=== PATIENT | male | born 1955 | race Caucasian/White ===

== ENCOUNTER 2024-10-27 11:00 | Outpatient (RCR) | payer MEDICARE, BC, SELFPAY ==
[2024-05-27 15:00] LABS: Basophils Percent Auto 0.2 % (0.0-3.0); Hematocrit* 39.8 % (37.0-53.0); Hemoglobin* 12.9 gm/dL (13.5-17.5); Immature Granulocytes Pct Auto 0.2 %; Lymphocytes Percent Auto 16.2 % (20-44); Mean Corpuscular HGB Conc 32 gm/dL (32-36); Mean Corpuscular Hemoglobin 30 pg (26-34); Mean Corpuscular Volume 93 fL (80-100); Monocytes Percent Auto 10.3 % (0.0-11.0); Neutrophils Percent Auto 71.1 % (42.0-72.0); Platelet Count* 187 K/uL (140-440); RDW Coefficient of Variation % 12.8 % (11.5-15.5); Red Blood Count* 4.27 m/uL (4.30-5.90); White Blood Count* 4.45 K/uL (4.50-11.00)
[2024-05-27 15:02] LABS: Slide Review Reflex No
[2024-05-27 15:15] LABS: Albumin* 4.1 g/dL (3.3-5.0); Chloride* 108 mmol/L (96-114); Potassium* 4.2 mmol/L (3.6-5.1); Sodium* 137 mmol/L (135-149)
[2024-05-27 15:18] LABS: Alanine Aminotransferase* 24 U/L (4-50); Alkaline Phosphatase* 78 U/L (40-150); Anion Gap 3 mEq/L (7-15); Aspartate Amino Transferase* 24 U/L (12-35); Bilirubin Total* 0.5 mg/dL (0.1-1.5); Blood Urea Nitrogen* 29 mg/dL (7-30); Carbon Dioxide* 26 mmol/L (20-32); Estimated Glomerular Filt Rate 80 ml/min; Glucose* 107 mg/dL (60-115); Total Protein* 6.6 g/dL (6.0-8.3)
[2024-05-27 15:19] LABS: Calcium* 9.2 mg/dL (8.4-10.6)
[2024-05-27 15:48] LABS: PSA Diagnostic* 0.64 ng/mL (0.10-4.00)
[2024-05-30 03:55] LABS: Sex Hormone Binding Globulin 45 nmol/L (19-76); Testosterone, Adult Male <3 ng/dL (300-720); Testosterone, Free Calculation <1 pg/mL (47-244); Testosterone, Percentage Free <1.4 % (1.6-2.9)
[2024-05-30 04:21] LABS: Vitamin D, 1,25-Dihydroxy 34.3 pg/mL (19.9-79.3)
--- NOTE | 2024-06-23 16:29 | ONC.NURNOTE ---
Reviewed possible side effects and required monitoring while on Erleada Reviewed dosing and administration lenghtly discussion on managing the financial toxicity with no medicare part D coverage Rx and supporting documentation to be [facility]ed to [id number] patient was advised that it will be 1-2 weeks before medication is delivered options discussed for managing cost coverage of the Erleada -first if copay maurisio available for prostate cancer -if no maurisio - patient may be financially eligable for free drug through the [employer] -or he may be responsible for the first $2000 out of pocket max
--- NOTE | 2024-06-27 15:58 | ONC.NURNOTE ---
RX Geoffjudithada is pending processing at [id number] [address] Dr Kemp signed oncology consult to fax to [id number] patient has no part D and will need to be referred to [employer] once copay known as unaffordable reviewed income eligibility with patient Vicky Chao signed the providers portion of the enrollment form instructions given for Anup to complete his portion on line but not submit until the RX has been processed by [id number] through his insurance
--- NOTE | 2024-06-29 12:14 | ONC.NURNOTE ---
Addendum entered by Blanca Palma RN 06/30/24 09:30: application missing gender designation- corrected and refaxed to [facility] call to patient to remind to complete his application online- patient states he will try to complete today Original Note: Erleada monthly copay without Part D coverage is over $18,000/month Anup was instructed on the [employer] [facility] he will complete his portion via online portal Vicky HULL signed the provider statement for Dr Higgins who will not be back in the office for 8 days application was faxed to [phone]
--- NOTE | 2024-07-06 09:29 | ONC.NURNOTE ---
Shalonda to be provided by [facility] [employer] [facility] from 07/04/24 through 06/07/25 at no cost phone [phone] fax [phone]
[2024-07-07 09:53] LABS: Eosinophils Absolute Auto 0.13 K/uL (0.00-0.50); Eosinophils Percent Auto 2.7 % (0.0-7.0); Hematocrit* 39.4 % (37.0-53.0); Hemoglobin* 12.9 gm/dL (13.5-17.5); Immature Granulocytes Abs Auto 0.02 K/uL (0.00-0.30); Immature Granulocytes Pct Auto 0.4 %; Lymphocytes Absolute Auto 1.22 K/uL (0.90-2.90); Lymphocytes Percent Auto 25.8 % (20-44); Mean Corpuscular HGB Conc 33 gm/dL (32-36); Mean Corpuscular Hemoglobin 30 pg (26-34); Mean Corpuscular Volume 90 fL (80-100); Monocytes Percent Auto 12.3 % (0.0-11.0); Neutrophils Absolute Auto 2.78 K/uL (1.7-7.0); Neutrophils Percent Auto 58.8 % (42.0-72.0); Platelet Count* 170 K/uL (140-440); RDW Coefficient of Variation % 13.5 % (11.5-15.5); Red Blood Count* 4.38 m/uL (4.30-5.90); White Blood Count* 4.73 K/uL (4.50-11.00)
[2024-07-07 09:55] LABS: Slide Review Reflex No
[2024-07-07 10:06] LABS: Albumin* 4.1 g/dL (3.3-5.0); Chloride* 107 mmol/L (96-114); Sodium* 138 mmol/L (135-149)
[2024-07-07 10:09] LABS: Alanine Aminotransferase* 20 U/L (4-50); Alkaline Phosphatase* 71 U/L (40-150); Anion Gap 6 mEq/L (7-15); Aspartate Amino Transferase* 19 U/L (12-35); Bilirubin Total* 0.6 mg/dL (0.1-1.5); Blood Urea Nitrogen* 30 mg/dL (7-30); Carbon Dioxide* 25 mmol/L (20-32); Creatinine* 0.8 mg/dL (0.5-1.5); Est. Creatinine Clearance* 56.73; Estimated Glomerular Filt Rate 95 ml/min; Glucose* 97 mg/dL (60-115); Total Protein* 6.7 g/dL (6.0-8.3)
[2024-07-07 10:10] LABS: Calcium* 9.2 mg/dL (8.4-10.6)
--- NOTE | 2024-07-07 11:21 | URNOTE ---
Request received for authorization [facility] ([id number] Prior authorization is not required as services are based on medical necessity and follow Medicare guidelines.
--- NOTE | 2024-07-07 12:19 | ONC.NURNOTE ---
baseline labs drawn today for Erleada start results noted as stable and called to [facility] reviewed next lab due in 4 weeks- patient will also be receiving his leuprolide per orders from Dr Carlyn Collado requested that he receive injections at [facility] instead of [place]
--- NOTE | 2024-07-08 14:27 | ONC.NURNOTE ---
Received call from Kristina with [employer] ([employer]). Pt has been approved for financial assistance. He will receive drug through [facility]. Pt has been given their phone # to set up delivery. Kristina's phone: [phone] [facility]: P: F:
--- NOTE | 2024-07-12 13:56 | ONC.NURNOTE ---
tolerance check-in regarding new start of Erleada reports no noticable effects denies swelling, rash, fatigue arthralgias, diarrhea reviewed process for ordering next months supply
[2024-08-04 09:07] LABS: Basophils Absolute Auto 0.01 K/uL (0.00-0.30); Basophils Percent Auto 0.2 % (0.0-3.0); Eosinophils Absolute Auto 0.15 K/uL (0.00-0.50); Eosinophils Percent Auto 2.6 % (0.0-7.0); Hematocrit* 40.3 % (37.0-53.0); Hemoglobin* 12.9 gm/dL (13.5-17.5); Immature Granulocytes Abs Auto 0.01 K/uL (0.00-0.30); Immature Granulocytes Pct Auto 0.2 %; Lymphocytes Absolute Auto 1.44 K/uL (0.90-2.90); Lymphocytes Percent Auto 25.4 % (20-44); Mean Corpuscular HGB Conc 32 gm/dL (32-36); Mean Corpuscular Hemoglobin 29 pg (26-34); Mean Corpuscular Volume 92 fL (80-100); Monocytes Percent Auto 9.7 % (0.0-11.0); Neutrophils Absolute Auto 3.51 K/uL (1.7-7.0); Neutrophils Percent Auto 61.9 % (42.0-72.0); Platelet Count* 214 K/uL (140-440); RDW Coefficient of Variation % 14.1 % (11.5-15.5); Red Blood Count* 4.39 m/uL (4.30-5.90); White Blood Count* 5.67 K/uL (4.50-11.00)
[2024-08-04 09:08] LABS: Slide Review Reflex No
[2024-08-04 09:20] LABS: Albumin* 4.4 g/dL (3.3-5.0); Chloride* 104 mmol/L (96-114); Sodium* 138 mmol/L (135-149)
[2024-08-04 09:23] LABS: Alkaline Phosphatase* 80 U/L (40-150); Anion Gap 8 mEq/L (7-15); Aspartate Amino Transferase* 24 U/L (12-35); Bilirubin Total* 0.6 mg/dL (0.1-1.5); Blood Urea Nitrogen* 35 mg/dL (7-30); Carbon Dioxide* 26 mmol/L (20-32); Creatinine* 1.1 mg/dL (0.5-1.5); Est. Creatinine Clearance* 51.58; Estimated Glomerular Filt Rate 72 ml/min; Glucose* 96 mg/dL (60-115)
[2024-08-04 09:24] LABS: Alanine Aminotransferase* 25 U/L (4-50); Calcium* 9.5 mg/dL (8.4-10.6)
[2024-08-04 09:47] VITALS: BP 117/80; PULSE 65; RESP 16; TEMP 36.1; O2SAT 96
[2024-08-04 09:54] LABS: PSA Diagnostic* 0.22 ng/mL (0.10-4.00)
[2024-08-04] MEDS: LEUPROLIDE ACETATE (ELIGARD) 22.5 MG INJ SUBCUT (10:07)
--- NOTE | 2024-08-04 11:14 | ONC.NURNOTE ---
lab results noted PSA called to [facility] reviewed any noted side effects from apalutamide notes fatigue reports some minimal change in stool quality- firmer denies constipation suggested miralax if need to soften stools denies any other concern taking his medication daily reports no issues with medication delivery
[2024-09-01 11:49] LABS: Basophils Absolute Auto 0.01 K/uL (0.00-0.30); Basophils Percent Auto 0.2 % (0.0-3.0); Eosinophils Percent Auto 2.2 % (0.0-7.0); Hematocrit* 38.6 % (37.0-53.0); Hemoglobin* 12.5 gm/dL (13.5-17.5); Immature Granulocytes Abs Auto 0.04 K/uL (0.00-0.30); Immature Granulocytes Pct Auto 0.9 %; Lymphocytes Absolute Auto 1.21 K/uL (0.90-2.90); Lymphocytes Percent Auto 26.3 % (20-44); Mean Corpuscular HGB Conc 32 gm/dL (32-36); Mean Corpuscular Hemoglobin 30 pg (26-34); Mean Corpuscular Volume 91 fL (80-100); Monocytes Percent Auto 10.2 % (0.0-11.0); Neutrophils Absolute Auto 2.77 K/uL (1.7-7.0); Neutrophils Percent Auto 60.2 % (42.0-72.0); Platelet Count* 219 K/uL (140-440); Red Blood Count* 4.24 m/uL (4.30-5.90)
[2024-09-01 12:03] LABS: Slide Review Reflex No
[2024-09-01 12:04] LABS: Chloride* 107 mmol/L (96-114)
[2024-09-01 12:05] LABS: Potassium* 3.9 mmol/L (3.6-5.1); Sodium* 140 mmol/L (135-149)
[2024-09-01 12:07] LABS: Alanine Aminotransferase* 22 U/L (4-50); Anion Gap 6 mEq/L (7-15); Aspartate Amino Transferase* 25 U/L (12-35); Blood Urea Nitrogen* 27 mg/dL (7-30); Carbon Dioxide* 27 mmol/L (20-32); Creatinine* 0.9 mg/dL (0.5-1.5); Est. Creatinine Clearance* 56.73; Estimated Glomerular Filt Rate 91 ml/min
[2024-09-01 12:08] LABS: Alkaline Phosphatase* 67 U/L (40-150); Bilirubin Total* 0.5 mg/dL (0.1-1.5); Calcium* 9.4 mg/dL (8.4-10.6); Glucose* 104 mg/dL (60-115); Total Protein* 6.7 g/dL (6.0-8.3)
[2024-09-01 12:38] LABS: PSA Diagnostic* 0.14 ng/mL (0.10-4.00)
[2024-10-27 11:10] LABS: Basophils Percent Auto 0.2 % (0.0-3.0); Eosinophils Percent Auto 3.9 % (0.0-7.0); Hematocrit* 36.8 % (37.0-53.0); Hemoglobin* 11.9 gm/dL (13.5-17.5); Immature Granulocytes Pct Auto 0.5 %; Lymphocytes Percent Auto 25.8 % (20-44); Mean Corpuscular HGB Conc 32 gm/dL (32-36); Mean Corpuscular Hemoglobin 30 pg (26-34); Mean Corpuscular Volume 94 fL (80-100); Monocytes Percent Auto 12.2 % (0.0-11.0); Neutrophils Percent Auto 57.4 % (42.0-72.0); Platelet Count* 187 K/uL (140-440); RDW Coefficient of Variation % 13.9 % (11.5-15.5); Red Blood Count* 3.93 m/uL (4.30-5.90); White Blood Count* 4.11 K/uL (4.50-11.00)
[2024-10-27 11:11] LABS: Slide Review Reflex No
[2024-10-27 11:14] VITALS: BP 156/78; PULSE 58; RESP 16; TEMP 36.6; O2SAT 98
[2024-10-27 11:27] LABS: Albumin* 3.9 g/dL (3.3-5.0); Chloride* 106 mmol/L (96-114); Potassium* 3.7 mmol/L (3.6-5.1); Sodium* 139 mmol/L (135-149)
[2024-10-27 11:29] LABS: Blood Urea Nitrogen* 25 mg/dL (7-30); Creatinine* 0.9 mg/dL (0.5-1.5); Est. Creatinine Clearance* 56.73; Estimated Glomerular Filt Rate 91 ml/min
[2024-10-27 11:30] LABS: Alanine Aminotransferase* 15 U/L (4-50); Alkaline Phosphatase* 86 U/L (40-150); Anion Gap 4 mEq/L (7-15); Aspartate Amino Transferase* 23 U/L (12-35); Bilirubin Total* 0.4 mg/dL (0.1-1.5); Calcium* 8.8 mg/dL (8.4-10.6); Carbon Dioxide* 29 mmol/L (20-32); Glucose* 103 mg/dL (60-115); Total Protein* 6.4 g/dL (6.0-8.3)
[2024-10-27] MEDS: LEUPROLIDE ACETATE (ELIGARD) 22.5 MG INJ SUBCUT (11:51)
--- NOTE | 2024-10-27 13:18 | ONC.NURNOTE ---
message left on voice mail- results stable
== END 2024-11-23 23:59 | disposition home or self-care (01) ==
LOC: CCIC 11:00
PROVIDERS: Internal Medicine; Internal Medicine Hematology & Oncology; Visit Provider Physician Assistant
DX: C61 Malignant neoplasm of prostate (principal)
CPT/HCPCS: 36415; 80053; 82652; 84153; 84270; 84402; 84403; 85025; 96402; 99203; 99204; 99214; G0463; J9217

== ENCOUNTER 2025-04-14 10:00 | Outpatient (RCR) | payer MEDICARE, BC, SELFPAY ==
[2024-11-29 10:27] LABS: Hematocrit* 40.2 % (37.0-53.0); Hemoglobin* 13.1 gm/dL (13.5-17.5); Immature Granulocytes Pct Auto 0.2 %; Mean Corpuscular HGB Conc 33 gm/dL (32-36); Mean Corpuscular Hemoglobin 31 pg (26-34); Mean Corpuscular Volume 94 fL (80-100); RDW Coefficient of Variation % 13.3 % (11.5-15.5); Red Blood Count* 4.29 m/uL (4.30-5.90); White Blood Count* 4.18 K/uL (4.50-11.00)
[2024-11-29 10:41] LABS: Immature Granulocytes Abs Auto 0.00 K/uL (0.00-0.30); Lymphocytes Absolute Auto 1.10 K/uL (0.90-2.90); Slide Review Reflex No
[2024-11-29 10:45] LABS: Albumin* 4.2 g/dL (3.3-5.0); Chloride* 106 mmol/L (96-114); Potassium* 4.6 mmol/L (3.6-5.1); Sodium* 139 mmol/L (135-149)
[2024-11-29 10:47] LABS: Blood Urea Nitrogen* 26 mg/dL (7-30); Creatinine* 0.9 mg/dL (0.5-1.5); Estimated Glomerular Filt Rate 91 ml/min
[2024-11-29 10:48] LABS: Alanine Aminotransferase* 16 U/L (4-50); Alkaline Phosphatase* 80 U/L (40-150); Anion Gap 5 mEq/L (7-15); Aspartate Amino Transferase* 21 U/L (12-35); Bilirubin Total* 0.5 mg/dL (0.1-1.5); Calcium* 9.3 mg/dL (8.4-10.6); Carbon Dioxide* 28 mmol/L (20-32); Glucose* 112 mg/dL (60-115); Total Protein* 6.9 g/dL (6.0-8.3)
[2024-11-29 11:26] LABS: PSA Diagnostic* < 0.06 ng/mL (0.10-4.00)
--- NOTE | 2025-01-19 12:13 | ONC.NURNOTE ---
Pt did not come for his scheduled Eligard injection. Called [facility] and updated them.
[2025-01-20 13:25] VITALS: BP 149/89; PULSE 65; RESP 12; TEMP 36.9; O2SAT 94
[2025-01-20 13:31] VITALS: PULSE 65
[2025-01-20] MEDS: LEUPROLIDE ACETATE (ELIGARD) 22.5 MG INJ SUBCUT (13:49)
[2025-02-24 10:18] LABS: Hematocrit* 40.8 % (37.0-53.0); Hemoglobin* 13.3 gm/dL (13.5-17.5); Immature Granulocytes Abs Auto 0.03 K/uL (0.00-0.30); Immature Granulocytes Pct Auto 0.4 %; Mean Corpuscular HGB Conc 33 gm/dL (32-36); Mean Corpuscular Hemoglobin 30 pg (26-34); Mean Corpuscular Volume 93 fL (80-100); RDW Coefficient of Variation % 13.4 % (11.5-15.5); Red Blood Count* 4.41 m/uL (4.30-5.90); White Blood Count* 8.17 K/uL (4.50-11.00)
[2025-02-24 10:24] LABS: Lymphocytes Absolute Auto 1.20 K/uL (0.90-2.90); Slide Review Reflex No
[2025-02-24 10:46] LABS: Albumin* 4.1 g/dL (3.3-5.0); Chloride* 106 mmol/L (96-114); Potassium* 4.6 mmol/L (3.6-5.1); Sodium* 140 mmol/L (135-149)
[2025-02-24 10:49] LABS: Alanine Aminotransferase* 16 U/L (4-50); Alkaline Phosphatase* 81 U/L (40-150); Anion Gap 5 mEq/L (7-15); Aspartate Amino Transferase* 25 U/L (12-35); Bilirubin Total* 0.2 mg/dL (0.1-1.5); Blood Urea Nitrogen* 31 mg/dL (7-30); Carbon Dioxide* 29 mmol/L (20-32); Creatinine* 1.0 mg/dL (0.5-1.5); Estimated Glomerular Filt Rate 80 ml/min; Total Protein* 7.1 g/dL (6.0-8.3)
[2025-02-24 10:50] LABS: Calcium* 8.9 mg/dL (8.4-10.6); Glucose* 108 mg/dL (60-115)
[2025-02-24 11:24] LABS: PSA Diagnostic* < 0.06 ng/mL (0.10-4.00)
[2025-04-14 10:16] LABS: Hematocrit* 40.3 % (37.0-53.0); Hemoglobin* 13.1 gm/dL (13.5-17.5); Immature Granulocytes Abs Auto 0.01 K/uL (0.00-0.30); Immature Granulocytes Pct Auto 0.2 %; Lymphocytes Absolute Auto 1.25 K/uL (0.90-2.90); Mean Corpuscular HGB Conc 33 gm/dL (32-36); Mean Corpuscular Hemoglobin 30 pg (26-34); Mean Corpuscular Volume 94 fL (80-100); RDW Coefficient of Variation % 13.5 % (11.5-15.5); Red Blood Count* 4.31 m/uL (4.30-5.90); White Blood Count* 4.64 K/uL (4.50-11.00)
[2025-04-14 10:17] LABS: Slide Review Reflex No
[2025-04-14 10:20] VITALS: BP 147/91; PULSE 97; TEMP 35.9; O2SAT 97
[2025-04-14 10:30] LABS: Albumin* 4.0 g/dL (3.3-5.0); Chloride* 103 mmol/L (96-114); Potassium* 4.1 mmol/L (3.6-5.1); Sodium* 140 mmol/L (135-149)
[2025-04-14 10:33] LABS: Alanine Aminotransferase* 17 U/L (4-50); Alkaline Phosphatase* 83 U/L (40-150); Anion Gap 7 mEq/L (7-15); Aspartate Amino Transferase* 20 U/L (12-35); Bilirubin Total* 0.3 mg/dL (0.1-1.5); Blood Urea Nitrogen* 27 mg/dL (7-30); Calcium* 8.8 mg/dL (8.4-10.6); Carbon Dioxide* 30 mmol/L (20-32); Creatinine* 1.0 mg/dL (0.5-1.5); Est. Creatinine Clearance* 58.08; Estimated Glomerular Filt Rate 80 ml/min; Glucose* 102 mg/dL (60-115); Total Protein* 6.8 g/dL (6.0-8.3)
[2025-04-14] MEDS: LEUPROLIDE ACETATE (ELIGARD) 22.5 MG INJ SUBCUT (10:36)
[2025-04-14 11:11] LABS: PSA Diagnostic* < 0.06 ng/mL (0.10-4.00)
--- NOTE | 2025-05-12 15:30 | ONC.NURNOTE ---
Regarding Erleada coverage for 2025 patient has enrolled in a Part D plan- but does not have his cards yet he understands that he will be paying the $2100 out of pocket and is able to accomodate this plan he will call back Thursday with the new insurance information
--- NOTE | 2025-05-24 10:10 | ONC.NURNOTE ---
Spoke with Darrell Burnham at [employer] with me. They have received the re-enrollment form for Shalonda. They will be reviewing these forms in the next 2 weeks. They will reach out if further information is needed otherwise patient will be automatically re-enrolled.
== END 2025-05-28 23:59 | disposition home or self-care (01) ==
LOC: CCIC 10:00
PROVIDERS: Physician Assistant; Visit Provider Internal Medicine Hematology & Oncology
DX: C61 Malignant neoplasm of prostate (principal); M81.0 Age-related osteoporosis without current pathological fracture; Z79.818 Long term (current) use of other agents affecting estrogen receptors and estrogen levels
CPT/HCPCS: 36415; 80053; 84153; 85025; 96402; 99214; G0463; J9217